=== PATIENT | female | born 1990 | race Caucasian/White ===

== ENCOUNTER 2017-08-02 20:54 | Outpatient (CLI) | payer MEDICAID ==
[~2017-08-02] VITALS: Ht 170.2 cm; Wt 142.6 kg
[2017-08-02 21:35] VITALS: BP 107/61; PULSE 83; RESP 18
[2017-08-02] MEDS ORDERED: FERR134T PO (21:41)
[2017-08-02] MEDS ORDERED: CALC600T5 PO (21:41)
[2017-08-02] MEDS ORDERED: PREN-19 PO (21:41)
[2017-08-02] MEDS ORDERED: NIFEdipine (XL) 60 MG TAB PO ONE (22:00)
[2017-08-02 22:08] LABS: ADD UMIC YES; UR AMORPHOUS CRYSTAL FEW /HPF (NONE SEEN); UR ASCORBIC ACID 40 mg/dL (NEGATIVE); UR BILIRUBIN (Dip) NEGATIVE (NEGATIVE); UR BLOOD (Dip) NEGATIVE (NEGATIVE); UR CLARITY CLOUDY (CLEAR); UR COLOR YELLOW (YELLOW); UR GLUCOSE (Dip) NEGATIVE (NEGATIVE); UR KETONES (Dip) NEGATIVE (NEGATIVE); UR LEUKOCYTE ESTERASE (Dip) 3+ Leu/ul (NEGATIVE); UR MUCUS FEW /HPF (NONE SEEN); UR NITRITE (Dip) NEGATIVE (NEGATIVE); UR RBC 3 /HPF (0-5); UR SPECIFIC GRAVITY (Dip) 1.016 (1.003-1.030); UR SQUAMOUS EPITHELIAL CELL MANY /HPF (FEW); UR TOTAL PROTEIN (Dip) NEGATIVE (NEGATIVE); UR UROBILINOGEN (Dip) 2+ mg/dL (NEGATIVE)
--- NOTE | 2017-08-02 23:28 | RADRPT ---
PROCEDURE: LIMITED OBSTETRICAL ULTRASOUND CLINICAL INDICATION: 27 years of age, female. Evaluate cervical length. labor. TECHNIQUE: Sonographic evaluation to assess the cervical length was performed. Transabdominal and transvaginal imaging of the uterus was performed. COMPARISON: None available. FINDINGS: ALISON: September 26, 2017 EGA by ALISON: 32 weeks 1 day A single live intrauterine in cephalic presentation is identified. The heart rate me asures 139 bpm. The cervix is closed, measuring 3.1 cm in length. Negative for internal funneling. Posterior placenta, grade 3. Placenta is heterogeneous with coarse calcifications and a prominent c otyledons and indentations. Placenta measures 6.5 cm in thickness. IMPRESSION: 1. Single living fetus in cephalic presentation. 2. Closed cervix measuring 3.1 cm. Negative for internal funneling. 3. Posterior grade 3 placenta that is thick measuring 6.5 cm. This may be seen with ischemic placent al disease. The patient may benefit from umbilical artery systolic diastolic ratio or biophysical pr ofile. Findings were discussed with Ayse Washington RN by Dr. Angelica Genao on August 02, 2017 at 11:25 p.m. She will give the results to the provider. RPTAT: HCTS Physician Kj Date Time Electronically viewed and signed by Physician Kj on 08/02/2017 23:27 CS/
--- NOTE | 2017-08-03 01:13 | RADRPT ---
PROCEDURE: Biophysical profile. CLINICAL INDICATION: Pelvic pain. TECHNIQUE: Multiple sonographic images of the pelvis were obtained with transabdominal technique. COMPARISON: 08/02/2017. FINDINGS: There is a single living intrauterine gestation with the fetus in a vertex position. The placenta i s posterior in location, grade 3. heart tones of 150 beats per minute are identified. There i s normal amniotic fluid volume with an MONET of 13.9 cm. three-vessel cord is identified with S/D ratio of 2.2 which is approximately 25 percentile for a 32-week gestation. breathing movements = 2 Gross body movements = 2 tone = 2 Qualitative AFV = 2 IMPRESSION: Biophysical profile 8 out of 8. .Kemar Campbell MD, Date Time Electronically viewed and signed by .Kemar Campbell MD, on 08/03/2017 01:13 .T/
--- NOTE | 2017-08-03 02:08 | PN ---
Triage Information Date/Time Aug 03, 2017 Reason for visit: Uterine contractions Weeks of Gestation 33w 2d /Para 4/2 Diabetes: none Hypertention: none Additional information PMHx:none. PSHx: C/S x 1. POBHX: X 1. C/S X 1. NKDA. Objective Vital Signs Date Time Temp Pulse Resp B/P Pulse Ox O2 Delivery O2 Flow Rate FiO2 08/02/17 21:35 98.3 83 18 107/61 98 Room Air Heart Rate: 130's Heart Rate Comments Accels to 150 bpm. No decels. Contractions: None (Except pt reported pain q 7-8 minutes.) Results/Medications Results 24 hrs Laboratory Tests Test 08/02/17 21:00 Urine Color YELLOW Urine Clarity CLOUDY A Urine pH 7.0 Urine Specific [place] 1.016 Urine Ketones NEGATIVE Urine Nitrite NEGATIVE Urine Bilirubin NEGATIVE Urine Urobilinogen 2+ H Urine Leukocyte Esterase 3+ H Urine Microscopic RBC 3 Urine Microscopic WBC 35 H Urine Squamous Epithelial Cells MANY A Urine Amorphous Crystals FEW A Urine Mucus FEW A Urine Hemoglobin NEGATIVE Urine Glucose NEGATIVE Urine Total Protein NEGATIVE Imaging Results BPP 8/8 with an MONET of 13.9 cm. S/D ratio is 2.2 which is in the 25th percentile for this gestational age. Placenta is grade 3, thickened, with multiple calcifications and prominent cotyledons. Disposition: Discharge Assessment/Plan A: IUP at 33w 2d. Prematurely aged placenta and a low S/D ratio. P: Pt has an appt with Dr Ramos today at 0930. Will give pt a copy of all of the results, explained all to pt and pt to bring all the paperwork so a careful f/u plan can be developed. SEBASTIAN WINCHESTER MD Aug 03, 2017 02:08
--- NOTE | 2017-08-03 02:18 | TRIAGE ---
OB Triage Datetime Report Generated by CPN: 08/03/2017 02:18 Datetime: 08/03/2017 01:23 Stage of : OB Triage Datetime: 08/03/2017 01:01 Pain Assessment Pain Scale: 6 Pain Presence: Intermittent Pain Type: Cramping Pain Location: Back Datetime: 08/03/2017 01:00 Monitor Mode: Palpation Resting Tone [place]: Relaxed Datetime: 08/03/2017 00:33 Stage of : OB Triage Monitor Mode: External Resting Tone [place]: Relaxed Heart Rate FHR Baseline Rate: 130 Monitor Mode: External US FHR Baseline Changes: No Baseline Change Variability: Moderate 6-25 bpm Accelerations: 15X15 Decelerations: None Category: Category I Pain Assessment Pain Scale: 5 Pain Presence: Intermittent Pain Type: Cramping Pain Location: Abdomen; Back Pain Assessment Comments: Pt states she's feeling much better with only occas cramping Datetime: 08/02/2017 23:35 Stage of : OB Triage Datetime: 08/02/2017 23:28 Stage of : OB Triage Datetime: 08/02/2017 23:25 Stage of : OB Triage Monitor Mode: External Duration (sec)2399: 10sec Pattern: Normal: <= 5 Contractions in 10 Minutes Resting Tone [place]: Relaxed Heart Rate FHR Baseline Rate: 130 Monitor Mode: External US FHR Baseline Changes: No Baseline Change Variability: Moderate 6-25 bpm Accelerations: 15X15 Decelerations: None Category: Category I Datetime: 08/02/2017 22:37 Stage of : OB Triage Heart Rate FHR Baseline Rate: 140 FHR Baseline Changes: No Baseline Change Variability: Moderate 6-25 bpm Accelerations: 15X15 Datetime: 08/02/2017 22:10 Stage of : OB Triage Datetime: 08/02/2017 21:54 Stage of : OB Triage Datetime: 08/02/2017 21:45 Stage of : OB Triage Labor Evaluation Frequency: placed Monitor Mode: External Pattern: Normal: <= 5 Contractions in 10 Minutes Resting Tone [place]: Relaxed Heart Rate FHR Baseline Rate: 140 Monitor Mode: External US FHR Baseline Changes: No Baseline Change Variability: Moderate 6-25 bpm Accelerations: 15X15 Decelerations: Variable Category: Category II Datetime: 08/02/2017 21:10 Stage of : OB Triage Maternal Assessment Level of Consciousness: Fully Conscious Headache: Denies Blurred Vision: No Respiratory Effort: Unlabored Nausea/Vomiting: Denies RUQ Epigastric Pain: Denies Facial Edema: None Labor Evaluation Frequency: placed Monitor Mode: External Resting Tone [place]: Relaxed Monitor Mode: External US Comments: FHT 140 Pain Assessment Pain Scale: 8 Pain Presence: Intermittent Pain Type: Cramping Pain Location: Abdomen; Back Datetime: 08/02/2017 21:01 Time of Arrival: 08/02/2017 20:50 EGA: 33.1 Arrived By: Ambulatory Arrived From: Home Chief Complaint: hx c/s x1 w/ c/o ucs and back pain. States has hx of fainting x2 for unknown reason during Movement: Present Contractions: Irregular Time Contractions Began: 08/02/2017 12:00 Contractions: Q7-8 Rupture of Membranes: Denies Vaginal Bleeding: None Vaginal Discharge: Present Recent Sexual Intercouse: Denies Abdominal Trauma: Not Applicable Patient Complaints: Contractions; Back Pain Time Provider Notified: 08/02/2017 21:45 Provider Notified: Dr Ramos Initial Plan: EFSachin,UA,CVL, Procardia
== END 2017-08-03 02:10 | disposition home or self-care (01) ==
LOC: OBT 20:54 → L-D 20:56 → OBT 08-03 02:10
PROVIDERS: ATTEND Specialist
DX: O62.9 Abnormality of forces of labor, unspecified (principal); Z3A.33 33 weeks gestation of pregnancy
CPT/HCPCS: 76817; 76818; 76820; 81001; Z7500; Z7610; G0463

== ENCOUNTER 2017-08-19 17:47 | Outpatient (CLI) | payer MEDICAID ==
[~2017-08-19] VITALS: Ht 170.2 cm; Wt 143.9 kg
[~2017-08-19 17:47] MED LIST: CALC600T5 PO; FERR134T PO; PREN-19 PO
[2017-08-19 18:25] VITALS: Ht 170.2 cm; Wt 143.9 kg
[2017-08-19 18:26] VITALS: BP 122/65; PULSE 93; RESP 18
[2017-08-19 19:21] LABS: ADD UMIC YES; UR ASCORBIC ACID NEGATIVE (NEGATIVE); UR BACTERIA FEW /HPF (NONE SEEN); UR BILIRUBIN (Dip) NEGATIVE (NEGATIVE); UR BLOOD (Dip) NEGATIVE (NEGATIVE); UR CLARITY SLIGHTLY CLOUDY (CLEAR); UR COLOR YELLOW (YELLOW); UR GLUCOSE (Dip) NEGATIVE (NEGATIVE); UR KETONES (Dip) NEGATIVE (NEGATIVE); UR LEUKOCYTE ESTERASE (Dip) 3+ Leu/ul (NEGATIVE); UR MUCUS FEW /HPF (NONE SEEN); UR NITRITE (Dip) NEGATIVE (NEGATIVE); UR RBC 1 /HPF (0-5); UR SPECIFIC GRAVITY (Dip) 1.016 (1.003-1.030); UR SQUAMOUS EPITHELIAL CELL FEW /HPF (FEW); UR TOTAL PROTEIN (Dip) NEGATIVE (NEGATIVE); UR UROBILINOGEN (Dip) NEGATIVE (NEGATIVE)
--- NOTE | 2017-08-19 20:00 | RADRPT ---
PROCEDURE: Obstetrical ultrasound for biophysical profile CLINICAL INDICATION: Biophysical profile. . TECHNIQUE: Obstetrical ultrasound of the uterus for biophysical profile. Transabdominal views are obtained. COMPARISON: 08/19/2017, 08/03/2017 FINDINGS: Single intrauterine gestation. Presentation: Cephalic. breathing movement = 2/2 tone = 2/2 motion = 2/2 MONET = 2/2 MONET = 12.2 cm heart rate: 150 beats per minute IMPRESSION: Single intrauterine gestation. Biophysical profile 06/07 RPTAT: AADD .Tarik Hooker MD, MD Date Time Electronically viewed and signed by .Tarik Hooker MD, on 08/19/2017 20:00 .B/
--- NOTE | 2017-08-19 20:09 | RADRPT ---
PROCEDURE: Obstetrical ultrasound CLINICAL INDICATION: Pre-term labor. TECHNIQUE: Transvaginal sonographic images of the uterus obtained after first trimester, greater than 14 weeks gestation. Single intrauterine gestation present. COMPARISON: 08/03/2017 FINDINGS: The cervix is closed with a length of 5.2 cm. IMPRESSION: The cervix is closed with a length of 5.2 cm. RPTAT: AADD .Tarik Hooker MD, MD Date Time Electronically viewed and signed by .Tarik Hooker MD, on 08/19/2017 20:09 .B/
--- NOTE | 2017-08-19 20:23 | RADRPT ---
PROCEDURE: Obstetrical ultrasound. CLINICAL INDICATION: , evaluation. Pelvic pain. TECHNIQUE: Transabdominal sonographic images of the uterus obtained after first trimester , greater than 14 weeks gestation. Single intrauterine gestation present. COMPARISON: 08/03/2017 FINDINGS: Single intrauterine gestation. There is a cephalic presentation. Measurements were made in order to determine age. The results are as follows: BPD = 36 weeks 1 day(s) HC = 36 weeks 0 day(s) AC = 32 weeks 6 day(s) appears slightly under measured. FL = 34 weeks 1 day(s) Heart rate = 135 beats per minute The placenta is posterior. There is no evidence for an abruption or placenta previa. Ovaries are not visualized. IMPRESSION: Single intrauterine gestation of approximately 34 weeks 6 days by ultrasound criteria. [place] estimated weight = 2287 g; 10 percentile for gestational age of 35 weeks 4 days. Abdominal circumference appears slightly under measured, recommend follow-up examination. RPTAT: AADD .Tarik Hooker MD, MD Date Time Electronically viewed and signed by .Tarik Hooker MD, on 08/19/2017 20:23 .B/
--- NOTE | 2017-08-19 21:38 | PN ---
Triage Information Date/Time 08/19/17 Reason for visit: back pain Weeks of Gestation 35w4d /Para A1 Diabetes: none Hypertention: none Objective Vital Signs Date Time Temp Pulse Resp B/P Pulse Ox O2 Delivery O2 Flow Rate FiO2 08/19/17 18:26 98.1 93 18 122/65 99 Room Air Heart Rate Comments reactive Contractions: None Results/Medications Results 24 hrs Laboratory Tests Test 08/19/17 12:58 Urine Color YELLOW Urine Clarity SLIGHTLY CLOUDY A Urine pH 7.0 Urine Specific [place] 1.016 Urine Ketones NEGATIVE Urine Nitrite NEGATIVE Urine Bilirubin NEGATIVE Urine Urobilinogen NEGATIVE Urine Leukocyte Esterase 3+ H Urine Microscopic RBC 1 Urine Microscopic WBC 24 H Urine Squamous Epithelial Cells FEW Urine Bacteria FEW A Urine Mucus FEW A Urine Hemoglobin NEGATIVE Urine Glucose NEGATIVE Urine Total Protein NEGATIVE Imaging Results BPP8/8 CVL 5.2 EFW 2287 Disposition: Discharge Assessment/Plan IUP 35w 4d pelvic pain resolved PLAN discharge home increase fluid intake have clinic check the result of urine culture result BEBETO SAHNI MD Aug 19, 2017 21:38
--- NOTE | 2017-08-19 22:49 | TRIAGE ---
OB Triage Datetime Report Generated by CPN: 08/19/2017 22:49 Datetime: 08/19/2017 19:30 Stage of : OB Triage Labor Evaluation Frequency: NONE Monitor Mode: External Resting Tone [place]: Relaxed Contraction Comments: PT DENIES ANY UC'S Heart Rate FHR Baseline Rate: 145 Monitor Mode: External US Variability: Moderate 6-25 bpm Accelerations: 15X15 Decelerations: None Datetime: 08/19/2017 19:24 Stage of : OB Triage Assessment Type: Triage Maternal Assessment Level of Consciousness: Fully Conscious DTR's/Clonus: DTRs 2+; No Clonus Headache: Denies Blurred Vision: No Respiratory Effort: Unlabored; Regular Rhythm; Equal Expansion Breath Sounds, Left: Clear and Equal Breath Sounds, Right: Clear and Equal Nausea/Vomiting: Denies RUQ Epigastric Pain: Denies Lower Extremities Edema: Bilateral Lower Extremities Degree: 1+ Upper Extremities Edema: None Degree: None Facial Edema: None Temperature Route: Oral Fall Risk Assessment History of Falling: (0) No Secondary Diagnosis: (0) No Ambulatory Aid: (0) Bedrest/Nurse Assist IV Therapy: (0) No Gait: (0) Normal/Bedrest/Immobile Mental Status: (0) Oriented to Own Ability Fall Score: 0 Fall Risk Score Definition: No Risk: No action required Datetime: 08/19/2017 18:32 Stage of : OB Triage Maternal Assessment Level of Consciousness: Fully Conscious DTR's/Clonus: DTRs 2+; No Clonus Headache: Denies Blurred Vision: No Respiratory Effort: Unlabored; Regular Rhythm; Equal Expansion Breath Sounds, Left: Clear and Equal Breath Sounds, Right: Clear and Equal Nausea/Vomiting: Denies RUQ Epigastric Pain: Denies Lower Extremities Edema: Bilateral Lower Extremities Degree: 1+ Upper Extremities Edema: None Degree: None Facial Edema: None Temperature Route: Oral Fall Risk Assessment History of Falling: (0) No Secondary Diagnosis: (0) No Ambulatory Aid: (0) Bedrest/Nurse Assist IV Therapy: (0) No Gait: (0) Normal/Bedrest/Immobile Mental Status: (0) Oriented to Own Ability Fall Score: 0 Fall Risk Score Definition: No Risk: No action required Monitor Mode: External Heart Rate FHR Baseline Rate: 155 Monitor Mode: External US Variability: initial Pain Assessment Pain Scale: 8 Pain Presence: Intermittent Pain Type: Sharp Pain Location: lower back and lower abd Pain Relief Measures: Comfort Measures Datetime: 08/19/2017 17:53 Time of Arrival: 08/19/2017 17:39 EGA: 35.4 Arrived By: Ambulatory Arrived From: Home Chief Complaint: backpain and lower abd pain, shortness of breath started last week, fainting spel l Movement: Present Contractions: Irregular Rupture of Membranes: Denies Vaginal Bleeding: None Vaginal Discharge: Denies Recent Sexual Intercouse: Yes Abdominal Trauma: Not Applicable Patient Complaints: Back Pain; Shortness of Breath; Other Time Provider Notified: 08/19/2017 19:18 Provider Notified: DR. SAHNI Initial Plan: efm Datetime: 08/03/2017 01:56 Stage of : OB Triage Heart Rate FHR Baseline Rate: 140 Monitor Mode: External US Variability: Moderate 6-25 bpm Accelerations: 15X15 Decelerations: None Category: Category I Datetime: 08/03/2017 01:27 Stage of : OB Triage Monitor Mode: External US FHR Baseline Changes: No Baseline Change Variability: Moderate 6-25 bpm Accelerations: 15X15 Decelerations: Prolonged Category: Category II Datetime: 08/03/2017 01:15 Stage of : OB Triage Monitor Mode: External Pattern: Normal: <= 5 Contractions in 10 Minutes Resting Tone [place]: Relaxed Heart Rate FHR Baseline Rate: 130 Monitor Mode: External US FHR Baseline Changes: No Baseline Change Variability: Moderate 6-25 bpm Accelerations: 15X15 Decelerations: None Category: Category I Pain Assessment Pain Scale: 5 Pain Presence: Intermittent Pain Type: Cramping Pain Location: Abdomen; Back Datetime: 08/02/2017 21:01 EGA: 33.1
== END 2017-08-19 22:00 | disposition home or self-care (01) ==
LOC: OBT 17:47 → L-D 17:48 → OBT 22:00
PROVIDERS: ATTEND Specialist
DX: O26.893 Other specified pregnancy related conditions, third trimester (principal); Z3A.35 35 weeks gestation of pregnancy; M54.9 Dorsalgia, unspecified
CPT/HCPCS: 76815; 76817; 76818; 81001; 87086; Z7500; G0463

== ENCOUNTER 2017-09-09 23:54 | Outpatient (CLI) | payer MEDICAID ==
[~2017-09-09] VITALS: Ht 170.2 cm; Wt 143.2 kg
[2017-09-10 00:05] VITALS: Ht 170.2 cm; Wt 143.2 kg
[2017-09-10 00:06] VITALS: BP 110/59; PULSE 96; RESP 18
[2017-09-10] MEDS ORDERED: TERBUTALINE 1 ML ONE (00:24)
[2017-09-10] MEDS ORDERED: TERBUTALINE 1 MG/ML INJ SC ONE ×2 (00:30→02:30)
[2017-09-10] MEDS: LACTATED RINGER'S 1,000 ML IV SCH ×2 (00:34→02:26)
[2017-09-10] MEDS ORDERED: CEFAZOLIN 2 GM/50 ML (PMX) 50 ML IVPB ONE ×2 (01:28→01:30)
--- NOTE | 2017-09-10 03:19 | TRIAGE ---
OB Triage Datetime Report Generated by CPN: 09/10/2017 03:19 Datetime: 09/10/2017 03:15 Time of Arrival: 09/09/2017 23:51 EGA: 37.4 Arrived By: Wheelchair Arrived From: Home Chief Complaint: UC'S X2DAYS Movement: Present Contractions: Regular Time Contractions Began: 09/09/2017 09:00 Rupture of Membranes: Denies Vaginal Bleeding: None Vaginal Discharge: Denies Recent Sexual Intercouse: Denies Abdominal Trauma: Not Applicable Patient Complaints: Contractions Time Provider Notified: 09/10/2017 00:20 Provider Notified: SHAMSIAN Initial Plan: EFM, SVE, CALL OB Datetime: 09/10/2017 03:10 Stage of : OB Triage Datetime: 09/10/2017 02:47 Pain Assessment Pain Assessment Comments: PT. SLEEPING, AROUSABLE TO SOUND. PT. STATES SHE IS FEELING BETTER. INFO RMED PT. SHE WILL BE D/C'D HOME AFTER 2ND BAG OF LR IS FINISHED, APPROX 10 MINS. PT. AGREES WITH POC Datetime: 09/10/2017 02:30 Monitor Mode: External US Comments: EFM DIFFICULT D/T PTS LARGE BMI Datetime: 09/10/2017 02:01 Monitor Mode: Palpation Resting Tone [place]: Relaxed Datetime: 09/10/2017 01:30 Labor Evaluation Frequency: 2-5 Monitor Mode: External Duration (sec)2399: 40-60 Pattern: Normal: <= 5 Contractions in 10 Minutes Contraction Comments: IRREGULAR PATTERN Heart Rate FHR Baseline Rate: 135 Monitor Mode: External US FHR Baseline Changes: No Baseline Change Variability: Moderate 6-25 bpm Accelerations: 15X15 Category: Category I Datetime: 09/10/2017 01:14 Monitor Mode: Palpation Resting Tone [place]: Relaxed Contraction Comments: PT. STATES HER UC'S HAVE DECREASED IN FREQUENCY Datetime: 09/10/2017 00:30 Labor Evaluation Frequency: 2-4 Monitor Mode: External Duration (sec)2399: 40-60 Pattern: Normal: <= 5 Contractions in 10 Minutes Contraction Comments: IRREGULAR PATTERN Heart Rate FHR Baseline Rate: 135 Monitor Mode: External US FHR Baseline Changes: No Baseline Change Variability: Moderate 6-25 bpm Accelerations: 15X15 Decelerations: None Datetime: 09/10/2017 00:20 Stage of : OB Triage Datetime: 09/10/2017 00:19 Effacement (%): 30 Station: -3 Datetime: 09/10/2017 00:18 Vaginal Exam Dilatation (cms): 1.0 Datetime: 09/10/2017 00:12 Stage of : OB Triage Assessment Type: Triage Maternal Assessment Level of Consciousness: Fully Conscious DTR's/Clonus: DTRs 2+; No Clonus Headache: Denies Blurred Vision: No Respiratory Effort: Unlabored; Regular Rhythm; Equal Expansion Breath Sounds, Left: Clear and Equal Breath Sounds, Right: Clear and Equal Nausea/Vomiting: Denies RUQ Epigastric Pain: Denies Facial Edema: None Temperature Route: Oral Fall Risk Assessment History of Falling: (0) No Secondary Diagnosis: (0) No Ambulatory Aid: (0) Bedrest/Nurse Assist IV Therapy: (0) No Gait: (0) Normal/Bedrest/Immobile Mental Status: (0) Oriented to Own Ability Fall Score: 0 Fall Risk Score Definition: No Risk: No action required Datetime: 09/10/2017 00:03 Labor Evaluation Frequency: IRREGULAR Monitor Mode: External Quality: Moderate Pattern: Normal: <= 5 Contractions in 10 Minutes Resting Tone [place]: Relaxed Contraction Comments: TOCOS APPLIED Heart Rate FHR Baseline Rate: 145 Monitor Mode: External US Comments: PLACED ON EFM Datetime: 08/19/2017 22:46 Time of Arrival: 09/09/2017 23:51 EGA: 37.4 Arrived By: Ambulatory Arrived From: Home Chief Complaint: uc's x 2 days, became worse at 0800 Movement: Present Contractions: Irregular Rupture of Membranes: Denies Vaginal Discharge: Denies Recent Sexual Intercouse: Denies Abdominal Trauma: Not Applicable Patient Complaints: Contractions Initial Plan: EFM Datetime: 08/19/2017 21:30 Stage of : OB Triage Labor Evaluation Frequency: NONE Monitor Mode: External Resting Tone [place]: Relaxed Heart Rate FHR Baseline Rate: 145 Monitor Mode: External US Variability: Moderate 6-25 bpm Accelerations: 15X15 Decelerations: None Datetime: 08/19/2017 20:30 Contraction Comments: US AT BEDSIDE; MONITOR OFF Comments: US AT BEDSIDE; MONITOR OFF Datetime: 08/19/2017 19:24 Fall Score: 0 Fall Risk Score Definition: No Risk: No action required Datetime: 08/19/2017 18:32 Fall Score: 0 Fall Risk Score Definition: No Risk: No action required Datetime: 08/19/2017 17:53 EGA: 34.4 Datetime: 08/02/2017 21:01 EGA: 32.1
--- NOTE | 2017-09-10 18:21 | QN ---
Documentation Comment iup 37 weeks ucx vss exam wnl nst reactive a/p iup 37 weeks false labor dc [place] NIECY SALAZAR MD Sep 10, 2017 18:21
--- NOTE | 2017-09-10 18:21 | QN ---
Documentation Comment iup 37 weeks ucx vss exam wnl nst reactive a/p iup 37 weeks false labor dc [place] NIECY SALAZAR MD Sep 10, 2017 18:21
--- NOTE | 2017-09-10 18:21 | QN ---
Documentation Comment iup 37 weeks ucx vss exam wnl nst reactive a/p iup 37 weeks false labor dc [place] NIECY SALAZAR MD Sep 10, 2017 18:21
[2017-09-12] MEDS ORDERED: INFLUENZA VIRUS VACCINE 0.5 ML (DISPENSING) IM* ONE (09:00)
== END 2017-09-10 03:10 | disposition home or self-care (01) ==
LOC: OBT 23:54 → L-D 23:55 → OBT 09-10 03:10
PROVIDERS: ATTEND Specialist
DX: O47.1 False labor at or after 37 completed weeks of gestation (principal); Z3A.37 37 weeks gestation of pregnancy
CPT/HCPCS: 36415; 81001; 96360; 96361; 96372; 96375; J0690; J3105; J7120; Z7500; G0463

== ENCOUNTER 2017-09-12 22:47 | Outpatient (CLI) | payer MEDICAID ==
[~2017-09-12] VITALS: Ht 170.2 cm; Wt 141.8 kg
[2017-09-12 23:01] VITALS: Ht 170.2 cm; Wt 141.8 kg
[2017-09-12 23:08] VITALS: BP 126/60; PULSE 87; RESP 18
--- NOTE | 2017-09-13 00:35 | RADRPT ---
PROCEDURE: ULTRASOUND BIOPHYSICAL PROFILE CLINICAL INDICATION: 27-year-old female with contractions. TECHNIQUE: Multiple sonographic images were obtained in order to perform a biophysical profile The images were reviewed on a PACS workstation. COMPARISON: Ultrasound biophysical profile August 19, 2017. FINDINGS: There is a single viable intrauterine gestation. There is a vertex presentation. Cardiac activity i s present at 134 beats per minute. The placenta is right lateral. The results of the biophysical pr ofile are as follows: breathing movement = 2/2 Gross body movement = 2/2 tone = 2/2 Qualitative amniotic fluid volume = 2/2 Amniotic fluid index equals 9.1 cm. This yields a biophysical profile score of 8/8. IMPRESSION: Biophysical profile score is 8/8. .Sascha Loving MD, MD Date Time Electronically viewed and signed by .Sascha Lovnig MD, on 09/13/2017 00:35 .M/
[2017-09-13 01:04] LABS: ADD UMIC YES; UR ASCORBIC ACID 40 mg/dL (NEGATIVE); UR BILIRUBIN (Dip) NEGATIVE (NEGATIVE); UR BLOOD (Dip) 1+ mg/dL (NEGATIVE); UR CLARITY CLEAR (CLEAR); UR COLOR YELLOW (YELLOW); UR GLUCOSE (Dip) NEGATIVE (NEGATIVE); UR KETONES (Dip) NEGATIVE (NEGATIVE); UR LEUKOCYTE ESTERASE (Dip) TRACE Leu/ul (NEGATIVE); UR MUCUS FEW /HPF (NONE SEEN); UR NITRITE (Dip) NEGATIVE (NEGATIVE); UR RBC 37 /HPF (0-5); UR SPECIFIC GRAVITY (Dip) 1.027 (1.003-1.030); UR SQUAMOUS EPITHELIAL CELL FEW /HPF (FEW); UR TOTAL PROTEIN (Dip) 1+ mg/dl (NEGATIVE); UR UROBILINOGEN (Dip) NEGATIVE (NEGATIVE)
--- NOTE | 2017-09-13 01:24 | PN ---
Triage Information Date/Time Reason for visit: Possible LOF Weeks of Gestation 39 /Para Diabetes: none Hypertention: none Additional information 27 Year-old with SIUP at 39 weeks with h/o one previous c/s presents with a chief complaint of possible LOF. She has been receiving her care with Dr. Ramos. She states good movement. She denies nausea, vomiting, shortness of breath, chest pain, and abdominal pain between contractions, headache, visual changes, vaginal bleeding. Objective Vital Signs Date Time Temp Pulse Resp B/P Pulse Ox O2 Delivery O2 Flow Rate FiO2 09/12/17 23:08 98.6 87 18 126/60 Room Air Heart Rate: 130's Contractions: >10 Minutes Apart Exam General: Patient appears well, alert and oriented, NAD, appropriate mood and affect ABD: gravid, soft, non-tender. Back: No CVA tenderness (B/L) LE: No clubbing, cyanosis, edema, thigh or calf tenderness bilaterally FHT: 135 bpm , moderate variability with acceleration, no deceleration-category I Contractions: Occasional Speculum exam: No vaginal bleeding or LOF seen. Nitrazine test is neg SVE: closed/thick/high/ceph/intact membrane Results/Medications Results 24 hrs Laboratory Tests Test 09/12/17 23:24 Urine Color YELLOW Urine Clarity CLEAR Urine pH 6.0 Urine Specific [place] 1.027 Urine Ketones NEGATIVE Urine Nitrite NEGATIVE Urine Bilirubin NEGATIVE Urine Urobilinogen NEGATIVE Urine Leukocyte Esterase TRACE A Urine Microscopic RBC 37 H Urine Microscopic WBC 8 H Urine Squamous Epithelial Cells FEW Urine Mucus FEW A Urine Hemoglobin 1+ H Urine Glucose NEGATIVE Urine Total Protein 1+ H Disposition: Discharge Assessment/Plan 27 Year-old with SIUP at 39 weeks, h/o one previous c/s presents for R/ O LOF. Her exam was neg. US performed with MONET of 9.1. U/A performed, she has no urinary sx, U/C ordered. She reassured. She has been dieter by Dr. Ramos for repeat C/S. FHR: No sign of metabolic acidosis- Category I. Symptoms and sign of labor, preeclampsia, kick count discussed with patient, she voiced understanding. All of her questions answered. Patient was discharged home in stable condition with the appropriate discharge instructions provided. I would like patient to have close follow-up with her primary physician or outpatient clinic in 1-2 days or return to the ER for worsening symptoms or any other urgent concerns. JAZZ ALVARADO Sep 13, 2017 01:24
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
== END 2017-09-13 01:33 | disposition home or self-care (01) ==
LOC: OBT 22:47 → L-D 22:49 → OBT 09-13 01:33
PROVIDERS: ATTEND Specialist
DX: O26.893 Other specified pregnancy related conditions, third trimester (principal); O62.9 Abnormality of forces of labor, unspecified; Z3A.39 39 weeks gestation of pregnancy
CPT/HCPCS: 76818; 81001; 84112; 87086; Z7500; G0463

== ENCOUNTER 2017-09-19 05:12 | Inpatient (IN) | payer MEDICAID ==
[~2017-09-19] VITALS: Ht 170.2 cm; Wt 145.4 kg
[2017-09-19] MEDS ORDERED: CEFAZOLIN 2 GM/50 ML (PMX) 50 ML IV SCH (05:30)
[2017-09-19] MEDS ORDERED: OXYTOCIN 30 UNITS/LR 500 ML IV PRN (05:30)
[2017-09-19] MEDS ORDERED: CARBOPROST 250 MCG INJ IM PRN (05:30)
[2017-09-19] MEDS ORDERED: METHYLERGONOVINE 0.2 MG INJ IM PRN (05:30)
[2017-09-19] MEDS ORDERED: MISOPROSTOL 200 MCG TAB PR PRN ×2 (05:30→08:30)
[2017-09-19 05:53] VITALS: Ht 170.2 cm; Wt 145.4 kg
[2017-09-19 05:54] VITALS: BP 116/67; PULSE 69; RESP 18
[2017-09-19] MEDS: LACTATED RINGER'S 1,000 ML IV SCH ×5 (05:56→20:22)
[2017-09-19 06:36] LABS: BASOPHILS % 0.2 % (0.0-2.0); EOSINOPHILS # 0.1 10^3/ul (0.0-0.5); EOSINOPHILS % 0.8 % (0.0-7.0); HEMATOCRIT 34.2 % (37.0-47.0); HEMOGLOBIN 11.3 g/dl (12.0-16.0); LYMPHOCYTES # 2.3 10^3/ul (0.8-2.9); LYMPHOCYTES % 23.4 % (15.0-51.0); MEAN CORPUSCULAR VOLUME 84.9 fl (82.0-101.0); MEAN PLATELET VOLUME 11.1 fl (7.4-10.4); MONOCYTE # 0.7 10^3/ul (0.3-0.9); MONOCYTES % 7.1 % (0.0-11.0); NEUTROPHIL # 6.8 10^3/ul (1.6-7.5); NEUTROPHILS % 68.3 % (39.0-77.0); PLATELET COUNT 254 10^3/UL (140-415); RED BLOOD COUNT 4.03 10^6/ul (4.20-5.40); RED CELL DISTRIBUTION WIDTH 13.9 % (11.5-14.5); WHITE BLOOD COUNT 9.9 10^3/ul (4.8-10.8)
[2017-09-19 06:57] LABS: INR 0.91; PROTIME 12.3 Sec (12.2-14.2)
[2017-09-19 06:58] LABS: PARTIAL THROMBOPLASTIN TIME 29.7 Sec (25.0-35.0)
--- NOTE | 2017-09-19 08:05 | HP ---
Date/Time of Note Date/Time of Note DATE: 09/19/17 TIME: 08:01 OB - History Hx of Present Free Text/Dictation HISTORY OF PRESENT ILLNESS: The patient is 27 YO with history of previous delivery, who desires to have repeat delivery and Permanent sterilization. Her EDC is 09/26/2017 and she 39 weeks at this time. I discussed with the patient the risks, benefits, indications, and alternatives of procedure including but not limited to risks of infection, bleeding, damage to other organs, bowel, bladder, hernia formation, scar formation, possibility of blood transfusion, possible need for emergency hysterectomy, as well as the fact that tubal ligation may fail and there is 1 to 2% risk of failure over lifetime of tubal ligations and the fact that tubal ligation is permanent and irreversible. She was allowed to ask questions. All her questions were answered. Informed consent has been obtained. Ultrasounds: Normal mid trimester US Obstetrical Complications: None Medical Complications: Other (Obesity) Past Family/Social History * Past Medical, Surgical, Family and Obstetric Histories reviewed from chart. OB Admission Exam Vital Signs Vital Signs Vital Signs Date Time Temp Pulse Resp B/P Pulse Ox O2 Delivery O2 Flow Rate FiO2 09/19/17 05:54 98.2 69 18 116/67 Room Air Physical Exam HEENT: WNL Heart: Rhythm Normal Lungs: Clear, Equal Abdomen: WNL Extremities: Normal Reflexes: Normal Last 72 hours Lab Results CBC & BMP 09/19/17 05:50 OB Assessment/Plan Other Assessment: IUP 39 weeks h/o previous Desires repeat Desires permanent sterilization Other plan: Repeat Delivery Tubal ligation may be done by either salpingectomy or modified Vishal BTL GIA SILVESTRE MD Sep 19, 2017 08:05
[2017-09-19] MEDS ORDERED: LANOLIN 7 GM TUBE TOP PRN (08:30)
[2017-09-19] MEDS ORDERED: OXYCODONE/ACETAMINOPHEN (5/325) TAB PO PRN (08:30)
[2017-09-19] MEDS ORDERED: NA PHOSPHATE/BIPHOS 133 ML ENEMA PR PRN (08:30)
[2017-09-19] MEDS ORDERED: EPHEDrine SULFATE 50 MG/5 ML SYG ONE (08:52)
[2017-09-19] MEDS ORDERED: ONDANSETRON 4 MG INJ ONE (08:52)
[2017-09-19] MEDS ORDERED: OXYTOCIN 30 UNITS/LR 500 ML IV ONE (08:52)
[2017-09-19] MEDS ORDERED: METOCLOPRAMIDE 10 MG INJ ONE (08:53)
[2017-09-19] MEDS ORDERED: OXYTOCIN 10 UNIT INJ ONE (08:53)
[2017-09-19] MEDS ORDERED: morphine SULFATE/PF (10 MG/10 ML) INJ ONE (08:53)
--- NOTE | 2017-09-19 09:57 | OPR ---
Date/Time of Note Date/Time of Note DATE: 09/19/17 TIME: 09:51 Operative Report Procedure Date: Sep 19, 2017 Preoperative Diagnosis 1. Term , history of previous delivery: 2. Desires repeat delivery. 3. Desires permanent sterilization Postoperative Diagnosis same Tubal adhesion Operation/Procedure Performed Repeat delivery Bilateral distal salpingectomy Lysis of adhesion Surgeon see signature line Novelty Twister Operator Dr. Garner Anesthesia Type: spinal Estimated Blood Loss: other (700) Transfusion none Specimen segments of bilateral distal tubes Grafts/Implants none Tubes/Drains Doyle cath Complications none Pt Condition Post Procedure: stable Disposition: PACU Procedure Description The risks, benefits, indications, alternatives of procedure including, but not limited to risk of infection, bleeding, damage to other organs, bowel, bladder, hernia formation, scar formation, possibility of blood transfusions, the risks of tubal ligation such as failure and future pregnancies were discussed with the patient. The fact that BTL is permanent and irreversible also discussed with patient. She was allowed to ask questions. All her questions were answered. Informed consent was obtained. DESCRIPTION OF PROCEDURE: She was taken to the operating room. Spinal anesthesia was induced. She was prepped and draped in the usual sterile fashion. Surgical time out one. Anesthesia was tested to be adequate. With permission from anesthesiologist, a knife was used to make a Pfannenstiel skin incision. The incision was taken down in layers. The fascia was cut, undermined and from the underlying muscle using sharp and blunt dissection. All the bleeders were cauterized. Peritoneum was entered bluntly. A low transverse incision was developed over the uterus. Amniotic fluid was clear and adequate. A viable infant in vertex presentation was delivered without any difficulty. The cord was clamped and cut, handed to awaiting team. Placenta was then delivered. Uterus was exteriorized, wrapped around a moist lap. Inside uterus was cleaned using a dry lap. All residual membranes were removed. The uterine incision was then closed using #1 Monocryl in 2 layers. There were adhesions from omentum to right tube and ovary. we had to proceed with lysis of sdhesions in order to be able to proceed with salpingectomy. Lysis of adhesions was done with cautery at all times protecting the intestines. A 5 cm distal end of the right tube was ligated 3 times using 0 plain tie and the ligated portion was cut , sent to pathology. Same procedure was done on the contralateral side. The uterus was inserted back inside the abdominal cavity. Irrigation was done carefully. Careful evaluation of the uterine incision revealed no further bleeding. The tubal ligation sites were evaluated carefully. There was no bleeding. The peritoneum and rectus muscles and fascia were evaluated. All bleeders cauterized. Peritoneum was closed using 2-0 Monocryl. At this time, the count was correct. Rectus fascia was reapproximated using 2-0 Monocryl. Rectus fascia was closed using #1 Vicryl. Subcutaneous tissue was cleaned and irrigated. All bleeders cauterized and the skin closed using Insorb. All counts correct. GIA SILVESTRE MD Sep 19, 2017 09:57
[2017-09-19] MEDS ORDERED: ONDANSETRON 4 MG INJ IV PRN (10:30)
[2017-09-19] MEDS ORDERED: morphine SULFATE/PF (10 MG/10 ML) INJ SPINAL ONE (10:30)
[2017-09-19] MEDS ORDERED: NALOXONE (0.4 MG/ML) INJ IV PRN (10:30)
[2017-09-19] MEDS ORDERED: EPHEDrine SULFATE 50 MG/5 ML SYG IV PRN (10:30)
[2017-09-19] MEDS ORDERED: DIPHENHYDRAMINE 50 MG INJ IV PRN (10:30)
[2017-09-19] MEDS ORDERED: morphine 2 MG INJ IV PRN (10:30)
[2017-09-19] MEDS ORDERED: morphine 4 MG/ML VIAL IV PRN (10:30)
[2017-09-19] MEDS: OXYTOCIN 30 UNITS/LR 500 ML IV SCH ×2 (11:41→16:18)
[2017-09-19] MEDS: IBUPROFEN 600 MG TAB PO SCH ×2 (12:00→17:50)
[2017-09-19] MEDS: SENNA/DOCUSATE NA (8.6MG/50MG) TAB PO SCH ×2 (12:48→21:00)
[2017-09-19 13:20] VITALS: BP 108/60; PULSE 59; RESP 20
[2017-09-19 13:30] VITALS: BP 101/59; PULSE 59; RESP 20
[2017-09-19 14:00] VITALS: BP 100/60; PULSE 59; RESP 20
[2017-09-19 16:08] VITALS: BP 92/52; PULSE 52; RESP 20
[2017-09-19] MEDS: KETOROLAC 30 MG INJ IV PRN (16:16)
[2017-09-19 19:45] VITALS: BP 96/54; PULSE 56; RESP 18
[2017-09-20] VITALS: BP 95/56; PULSE 55; RESP 18
[2017-09-20] MEDS: LACTATED RINGER'S 1,000 ML IV SCH ×3 (00:05→08:05)
[2017-09-20 04:15] VITALS: BP 99/49; PULSE 70; RESP 18
[2017-09-20] MEDS: KETOROLAC 30 MG INJ IV PRN (05:31)
[2017-09-20] MEDS: IBUPROFEN 600 MG TAB PO SCH ×4 (05:56→17:19)
[2017-09-20 08:20] VITALS: BP 102/49; PULSE 72; RESP 17
--- NOTE | 2017-09-20 09:42 | QN ---
Documentation Comment s/p c/s Subjective: no complaint Objective: Afebrile, VSS NAD A&O Abdomen: soft, appropriate tender Incision: no sign of bleeding/infection mild lochia Extremity: 1+ edema bilaterally Assessment: S/p C/S + BTL Recovering Well Plan: current care GIA SILVESTRE MD Sep 20, 2017 09:42
[2017-09-20] MEDS: SENNA/DOCUSATE NA (8.6MG/50MG) TAB PO SCH ×2 (10:06→20:41)
[2017-09-20] MEDS: OXYCODONE/ACETAMINOPHEN (5/325) TAB PO PRN ×3 (11:32→21:37)
[2017-09-20 11:33] LABS: BASOPHILS % 0.2 % (0.0-2.0); EOSINOPHILS % 0.2 % (0.0-7.0); LYMPHOCYTES # 1.4 10^3/ul (0.8-2.9); LYMPHOCYTES % 11.6 % (15.0-51.0); MEAN CORPUSCULAR HEMOGLOBIN 27.8 pg (29.0-33.0); MEAN CORPUSCULAR HGB CONC 32.3 g/dl (32.0-37.0); MEAN CORPUSCULAR VOLUME 86.1 fl (82.0-101.0); MONOCYTE # 0.8 10^3/ul (0.3-0.9); NEUTROPHIL # 9.4 10^3/ul (1.6-7.5); NEUTROPHILS % 80.6 % (39.0-77.0); PLATELET COUNT 219 10^3/UL (140-415); RED CELL DISTRIBUTION WIDTH 14.2 % (11.5-14.5); WHITE BLOOD COUNT 11.7 10^3/ul (4.8-10.8)
[2017-09-20 15:38] VITALS: BP 95/54; PULSE 76; RESP 17
[2017-09-20 19:35] VITALS: BP 86/48; PULSE 70; RESP 18
[2017-09-21] MEDS: IBUPROFEN 600 MG TAB PO SCH ×5 (00:08→23:56)
[2017-09-21 04:00] VITALS: BP 88/66; PULSE 85; RESP 20
[2017-09-21] MEDS: SENNA/DOCUSATE NA (8.6MG/50MG) TAB PO SCH ×2 (08:08→20:50)
[2017-09-21] MEDS: OXYCODONE/ACETAMINOPHEN (5/325) TAB PO PRN ×3 (08:08→20:50)
[2017-09-21 08:15] VITALS: BP 110/57; PULSE 69; RESP 18
[2017-09-21 20:00] VITALS: BP 110/56; PULSE 62; RESP 18
--- NOTE | 2017-09-21 21:13 | PN ---
Date/Time of Note Date/Time of Note DATE: 09/21/17 TIME: 21:11 OB Subjective Subjective Subjective Tolerated regular diet. Passed flatus and had bowel movement. Breast-feeding. Denies any complaint. Ambulating. Lochia in the amount of menses. OB Objective Objective Objective GA: Alert and oriented 4. Does not appear to be in any acute distress. Abdomen: Soft, appropriate tenderness in the incision. Incision: Clean, dry and intact with evidence of old blood on the Steri-Strips and dressing. No evidence of active bleeding or infection or drainage noted Lungs: Clear to auscultation bilaterally CV: RRR Extremities: No calf tenderness, no cords palpable, negative Homans sign Hematology - 72 Hrs Test 09/19/17 05:50 09/20/17 10:51 White Blood Count 9.910^3/ul (4.8-10.8) 11.710^3/ul (4.8-10.8) H Red Blood Count 4.0310^6/ul (4.20-5.40) L 3.6010^6/ul (4.20-5.40) L Hemoglobin 11.3g/dl (12.0-16.0) L 10.0g/dl (12.0-16.0) L Hematocrit 34.2% (37.0-47.0) L 31.0% (37.0-47.0) L Mean Corpuscular Volume 84.9fl (82.0-101.0) 86.1fl (82.0-101.0) Mean Corpuscular Hemoglobin 28.0pg (29.0-33.0) L 27.8pg (29.0-33.0) L Mean Corpuscular Hemoglobin Concent 33.0g/dl (32.0-37.0) 32.3g/dl (32.0-37.0) Red Cell Distribution Width 13.9% (11.5-14.5) 14.2% (11.5-14.5) Platelet Count 24609^3/UL (140-415) 12718^3/UL (140-415) Mean Platelet Volume 11.1fl (7.4-10.4) H 11.0fl (7.4-10.4) H Neutrophils % 68.3% (39.0-77.0) 80.6% (39.0-77.0) H Lymphocytes % 23.4% (15.0-51.0) 11.6% (15.0-51.0) L Monocytes % 7.1% (0.0-11.0) 7.0% (0.0-11.0) Eosinophils % 0.8% (0.0-7.0) 0.2% (0.0-7.0) Basophils % 0.2% (0.0-2.0) 0.2% (0.0-2.0) Nucleated Red Blood Cells % 0.0/100WBC (0.0-0.0) 0.0/100WBC (0.0-0.0) Neutrophils # 6.810^3/ul (1.6-7.5) 9.410^3/ul (1.6-7.5) H Lymphocytes # 2.310^3/ul (0.8-2.9) 1.410^3/ul (0.8-2.9) Monocytes # 0.710^3/ul (0.3-0.9) 0.810^3/ul (0.3-0.9) Eosinophils # 0.110^3/ul (0.0-0.5) 0.010^3/ul (0.0-0.5) Basophils # 0.010^3/ul (0.0-0.1) 0.010^3/ul (0.0-0.1) Nucleated Red Blood Cells # 0.010^3/ul (0.0-0.0) 0.010^3/ul (0.0-0.0) OB Assessment/Plan Other Assessment: Status post repeat section and BTL Postoperative day #2 Doing well Mild anemia, asymptomatic Routine postop care Possible DC home tomorrow ANA VENTURA MD Sep 21, 2017 21:13
[2017-09-22 04:00] VITALS: BP 113/61; RESP 18
[2017-09-22] MEDS: IBUPROFEN 600 MG TAB PO SCH ×2 (05:46→11:34)
[2017-09-22 08:00] VITALS: BP 120/61; PULSE 68; RESP 18
[2017-09-22] MEDS ORDERED: MEASLES,MUMPS,RUBELLA VACCINE INJ SC* ONE (09:00)
[2017-09-22] MEDS ORDERED: DIPHTH/TET/ACEL PERTUSS (ADULT) 0.5 ML VIAL IM* ONE (09:00)
[2017-09-22] MEDS: SENNA/DOCUSATE NA (8.6MG/50MG) TAB PO SCH (09:03)
[2017-09-22] MEDS: OXYCODONE/ACETAMINOPHEN (5/325) TAB PO PRN (09:06)
--- NOTE | 2017-09-22 11:42 | DS ---
Date/Time of Note Date/Time of Note DATE: 09/22/17 TIME: 11:36 Obstetrical Discharge Record Final Diagnosis Final Diagnosis: Term delivered Section Section: Repeat Complications Augmentation: No Induction: No Gestational Age at Rupture Current Medications Medications (Trade) Dose Ordered Sig/Mandy Route PRN Reason Start Time Stop Time Status Last Admin Dose Admin Lactated Ringer's 1,000 ml @ 125 mls/hr Q8H IV 09/19/17 05:24 09/20/17 14:30 DC 09/20/17 04:26 Cefazolin Sodium/ Dextrose 50 ml @ 100 mls/hr ONCE IV 09/19/17 05:30 09/19/17 17:52 DC Oxytocin/Lactated Ringer's 500 ml @ 125 mls/hr ONCE IV 09/19/17 05:30 09/19/17 16:18 Oxytocin/Lactated Ringer's 500 ml @ 0 mls/hr ONCE PRN IV For Hemorrhage Management 09/19/17 05:30 Methylergonovine Maleate (Methergine) 0.2 mg ONCE PRN IM VAGINAL BLEEDING 09/19/17 05:30 Carboprost Tromethamine (Hemabate) 250 mcg ONCE PRN IM VAGINAL BLEEDING 09/19/17 05:30 Misoprostol 1000 mcg 1,000 mcg ONCE PRN [place] VAGINAL BLEEDING 09/19/17 05:30 Lactated Ringer's (Lr) 1,000 ml @ 125 mls/hr Q8H IV 09/19/17 08:05 09/20/17 14:30 DC Oxycodone/ Acetaminophen (Percocet (5/ 325)) 1 tab Q4H PRN PO PAIN LEVEL 4-6 09/19/17 08:30 Oxycodone/ Acetaminophen (Percocet (5/ 325)) 2 tab Q4H PRN PO PAIN LEVEL 7-10 09/19/17 08:30 09/22/17 09:06 Ibuprofen (Motrin) 600 mg Q6 PO 09/19/17 12:00 09/22/17 11:34 Simethicone (Mylicon) 160 mg Q8H PRN PO DISTENSION/GAS/BLOATING 09/19/17 08:30 Senna/Docusate Sodium (Senokot-S) 1 tab BID PO 09/19/17 09:00 09/22/17 09:03 Sodium Biphosphate/ Sodium Phosphate (Fleet Enema) 133 ml DAILY PRN [place] CONSTIPATION 09/19/17 08:30 Lanolin ([id number]) 1 applic BEDSIDE MEDICATION PRN TOP BEDSIDE FOR ASPEN TO NIPPLES 09/19/17 08:30 09/21/17 00:08 Diphtheria/ Tetanus/Acell Pertussis (Adacel) 0.5 ml ONCE ONCE IM* 09/22/17 09:00 09/22/17 09:01 DC 09/22/17 10:26 Measles/Mumps/ Rubella Vaccine Live (Mmr Ii Vaccine) 0.5 ml ONCE ONCE SC* 09/22/17 09:00 09/22/17 09:01 DC Misoprostol (Cytotec) 1,000 mcg ONCE PRN [place] VAGINAL BLEEDING 09/19/17 08:30 Ephedrine Sulfate 50 mg 50 mg STK-MED ONCE .ROUTE 09/19/17 08:52 09/19/17 08:53 DC Oxytocin/Lactated Ringer's 500 ml @ ud STK-MED ONCE IV 09/19/17 08:52 09/19/17 08:53 DC Ondansetron HCl (Zofran Inj) 4 mg STK-MED ONCE .ROUTE 09/19/17 08:52 09/19/17 08:53 DC Metoclopramide HCl (Reglan) 10 mg STK-MED ONCE .ROUTE 09/19/17 08:53 09/19/17 08:54 DC Oxytocin (Oxytocin) 10 units STK-MED ONCE .ROUTE 09/19/17 08:53 09/19/17 08:54 DC Morphine Sulfate (Duramorph) 10 mg STK-MED ONCE .ROUTE 09/19/17 08:53 09/19/17 08:54 DC Naloxone HCl (Narcan) 0.1 mg Q2M PRN IV FOR RESP RATE 8 OR LESS 09/19/17 10:30 09/20/17 10:29 DC Ketorolac Tromethamine (Toradol) 30 mg Q6H PRN IV PAIN 09/19/17 10:30 09/20/17 10:29 DC 09/20/17 05:31 Morphine Sulfate (morphine) 2 mg Q3H PRN IV PAIN LEVEL 1-5 09/19/17 10:30 09/20/17 10:29 DC Morphine Sulfate (morphine) 4 mg Q3H PRN IV PAIN LEVEL 6-10 09/19/17 10:30 09/20/17 10:29 DC Diphenhydramine HCl (Benadryl) 25 mg Q6H PRN IV ITCHING 09/19/17 10:30 09/20/17 10:29 DC Ondansetron HCl (Zofran Inj) 4 mg Q6H PRN IV NAUSEA AND/OR VOMITING 09/19/17 10:30 09/20/17 10:29 DC 09/19/17 11:41 Morphine Sulfate (Duramorph) 0.3 mg GIVEN ANESTH ONCE SPINAL 09/19/17 10:30 09/19/17 10:31 DC Ephedrine Sulfate 5 mg [id number] PRN IV BLOOD PRESSURE SUPPORT 09/19/17 10:30 Condition on Discharge Physical Assessment Last Vitals: Post C section day 3 Doing Well Afebrile Ambulatory Chest Clear Breasts are soft , Nipples are intact Abdomen is soft Fundus is firm Moderate amount of lochia Incision is clean ,No evidence of infection No calf tenderness No ankle edema New born is doing well, Breast feeding Voiding: Yes Bowel Movement: Yes Breast: Soft, non-tender Fundus: Firm Abdomen and Incision: Healing well Patient Condition: Good CAPRI GOFF MD Sep 22, 2017 11:42 CAPRI GOFF MD Sep 22, 2017 11:42
== END 2017-09-22 13:52 | disposition home or self-care (01) | DRG 765 ==
LOC: L-D 05:12 → PP1 12:59
PROVIDERS: ADMIT Specialist; ATTEND Specialist
PROC: 0UB70ZZ Excision of Bilateral Fallopian Tubes, Open Approach (ICD-10-PCS; 2017-09-19)
PROC: 10D00Z1 Extraction of Products of Conception, Low, Open Approach (ICD-10-PCS; principal; 2017-09-19 07:30)
PROC: 3E0234Z Introduction of Serum, Toxoid and Vaccine into Muscle, Percutaneous Approach (ICD-10-PCS; 2017-09-22)
DX: O34.219 Maternal care for unspecified type scar from previous cesarean delivery (principal); Z68.43 Body mass index [BMI] 50.0-59.9, adult; O99.214 Obesity complicating childbirth; E66.01 Morbid (severe) obesity due to excess calories; O99.03 Anemia complicating the puerperium; Z3A.39 39 weeks gestation of pregnancy; Z37.0 Single live birth; Z30.2 Encounter for sterilization; Z23 Encounter for immunization
CPT/HCPCS: 85025; 85610; 85730; 86592; 86850; 86900; 86901; 87340; 88302; 90715; 99464; J0690; J1885; J2274; J2405; J2590; J2765; J7120